=== PATIENT | male | born 1970 | race African-American/Black ===

== ENCOUNTER → 2017-04-27 | Outpatient (CLI) | payer OTHER ==
[~2017-04-27] MED LIST: HYDROCODON-ACE1 EAC5 PO; HYDROCODON-ACE1 EAC9 PO; MOBIC PO; NICOTINE1 EAC1 TD; PEPCID PO; PRILOSEC40 MG PO; PROVENTIL17 GM IH; ZITHROMAX1 G/PKT PO; ZOFRAN ODT4 MG PO
--- NOTE | ~2017-04-27 | CT2 ---
[facility] A Service [facility] RADIOLOGY TEXT RESULTS PATIENT: [facility]ESLI GOOD[facility]ICH [facility] 74 UN[facility] #: [id number] AGE: [address]: Lucio Kim MD SEX: M ORDER DR: [id number] [facility] [address] [place], [place] [address] [id number] O MR#: [id number] Acc #: [id number] NAME: LESLI GOODRICH : 1970 SEX: M STUDY DATE/TIME: 04/27/2017 9:43 UNIT: [facility] ROOM: STUDY DESCRIPTION: CT Abd and Pelv W Cont Attending Physician: Lucio Kim M.D. Referring Physician: Lucio Kim M.D. Ordering Physician: Lucio Kim M.D. MEDICAL IMAGING REPORT This report is preliminary unless electronic signature is present EXAM CT abdomen and pelvis with contrast INDICTIONS Follow up colon cancer. No current complaints. The CT exam was performed with one or more of the following radiation dose reduction techniques: automatic exposure control, adjustment of mA and/or kV according to patient size, and iterative reconstruction. COMPARISON STUDY: 12/02/16 The patient was given 100 mL of Isovue-370 and axial 5 mm images were obtained through the abdomen and pelvis. FINDINGS The lung bases are clear. Frontal and sagittal reconstructions were generated. The liver, gallbladder, spleen, pancreas, adrenal glands and kidneys have a normal appearance. The aorta is normal in size. There is no adenopathy. There are postoperative changes involving the right colon. The bowel is otherwise normal. The bladder and prostate gland are normal. There is a fat containing supraumbilical hernia unchanged from the prior study. The bones are normal. IMPRESSION 1. No evidence of metastatic disease or recurring colon carcinoma. 2. Stable anterior supraumbilical fatty hernia. Dictated by... Kp Walls M.D. THIS IS AN ELECTRONICALLY VERIFIED REPORT [facility] A Service [facility] RADIOLOGY TEXT RESULTS PATIENT: LESLI GOODRICH LOCATION: [facility] : 74 UNIT #: [id number] AGE: [address]: Lucio Kim MD SEX: M ORDER DR: Kp Walls M.D. at 04/28/2017 3:55 PM JAZMYN/haylie TD: 04/27/2017 13:44 JOB #: [id number] MEDICAL IMAGING REPORT Page 1 of 1 COPY
[2017-04-27 10:40] LABS: POC - CREATININE 0.89 mg/dL (0.64-1.27); POC - GFR >60.0 mL/min (>60)
== END | disposition home or self-care (01) ==
LOC: CCAT 08:22
PROVIDERS: Internal Medicine Hematology
DX: Z08 Encounter for follow-up examination after completed treatment for malignant neoplasm (principal); K43.9 Ventral hernia without obstruction or gangrene; Z85.038 Personal history of other malignant neoplasm of large intestine
CPT/HCPCS: 74177; 82565; J1642; Q9967